=== PATIENT | male | born 1950 | race Caucasian/White ===

== ENCOUNTER → 2016-07-24 | Outpatient (CLI) | payer MEDICARE ==
[~2016-07-24] MED LIST: ADVAIR 250-501 EAC1 INH; ADVAIR 250-501 EACH IH; ADVAIR 2501 DISK W/D PO; ADVIL200 M1 PO; AGGRENOX PO; ALBUTEROL 0.5ML INH; ALBUTEROL MININEB NEB; ALBUTEROL0.83 MG/ML IH; ASPIRIN81 M1 PO; CHANTIX PO; CHANTIX1 MG PO; CIPRO PO; CLONIDINE PO; CLOPIDOGREL75 MG PO; COMBIVENT RESPIM4 GM INH; COMBIVENT U/D3 M2 INH; DUONEB 2.5-0.5 M3 ML NEB; FLOMAX0.4 MG PO; GLUCOPHAGE500 MG PO; IRON PILL; JANUVIA PO; JANUVIA50 MG PO; LASIX PO; LISINOPRIL10 MG PO; LOPID600 MG PO; LORTAB 10/500 T1 TAB PO; LOTREL PO; METFORMIN PO; OXYGEN; PLAVIX PO; PREDNISONE PO; SIMVASTATIN40 MG PO; TYLENOL PM EX-S1 TA4 PO; TYLOX 5/500 CAP1 CAP PO; ULTRAM PO; VICTOZA 3-0.6 MG/0.1 SQ; VICTOZA0.6 MG/0.1 SUBQ; ZESTORETIC; [UNRECOGNIZED DRUG - OTHER]
--- NOTE | ~2016-07-24 | EKG ---
PATIENT: WENDI CORTÉS UNIT #: [id number] Ventricular Rate: 86 BPM Atrial Rate: 86 BPM P-R Interval: 142 ms QRS Duration: 116 ms Q-T Interval: 380 ms QTC Calculation(Bezet): 454 ms P [place]unt[place]: -1 degrees Calculated R [place]: 65 degrees Calculated T [place]: 57 degrees Diagnosis Line: Normal sinus rhythm Diagnosis Line: Normal ECG Diagnosis Line: When compared with ECG of 09-DEC-2014 11:29, Diagnosis Line: No significant change was found Diagnosis Line: Confirmed by ALBA STEVENSON MD ([id number]) on 07/27/2016 Diagnosis Line: 3:58:59 PM INTERPRETING MD: ELVA KEITH
[2016-07-24 15:26] LABS: HEMATOCRIT 44.1 % (38.0-50.0); HEMOGLOBIN 14.5 gm/dL (13.0-16.0); MEAN CELL VOLUME 85.4 FL (83-96); MEAN CORPUSCULAR HEMOGLOBIN 28.1 PG (28-34); MEAN CORPUSCULAR HGB CONC 32.9 g/dL (30-36); RED BLOOD COUNT 5.16 X10e (3.90-5.60); RED CELL DISTRIBUTION WIDTH 15.1 % (11.0-15.5); WHITE BLOOD COUNT 8.1 X10e3 (4.0-10.5)
[2016-07-24 15:52] LABS: BUN/CREATININE RATIO 16.66; CALCIUM SERUM 9.6 mg/dL (8.4-10.2); CREATININE SERUM 0.9 mg/dL (0.6-1.4); GLOM FILT RATE Estimated 89.9 mL/min (>60)
== END | disposition home or self-care (01) ==
LOC: CAMB 13:47
PROVIDERS: Surgery
DX: Z01.818 Encounter for other preprocedural examination (principal); C44.40 Unspecified malignant neoplasm of skin of scalp and neck
CPT/HCPCS: 36415; 80048; 85027; 93005

== ENCOUNTER → 2016-08-01 | Day surgery (SDC) | payer MEDICARE ==
--- NOTE | ~2016-08-01 | OR ---
Unit #: [id number] #: [id number] Patient: WENDI CORTÉS [id number] [address] [place], [place] [address] [id number] O MR#: [id number] NAME: WENDI CORTÉS ROOM: Date of Procedure: 08/01/2016 Admission Date: 08/01/2016 Surgeon: Tyree Beaulieu Jr., M.D. : 1950 Attending Physician: Tyree Beaulieu Jr., M.D. Primary Care Physician: Hannah Tanner M.D. OPERATIVE REPORT JOB NOTE: CC: DR. 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 He actually has 2 lesion [id number] and was felt he needed these excised. He also has palpable lymph node in the area of the mid jugular nodes. It was felt he needed primary excision of his skin cancer as well as probably a lymph node biopsy. He was brought in this time for this procedure under general anesthesia. The patient understands the procedure including the risks, including that of nerve injury, bleeding, infection, poor healing, and recurrence of his cancer and consents. PREOPERATIVE DIAGNOSIS Two skin cancers of the left neck with possible positive nodes. POSTOPERATIVE DIAGNOSIS Two skin cancers of the left neck with possible positive nodes, noting several enlarged jugular nodes. ANESTHESIA General with 0.5% Marcaine with epinephrine locally. PROCEDURE PERFORMED Primary excision of 2 skin cancer of the left neck with left jugular node dissection. DESCRIPTION OF PROCEDURE The patient was positioned in supine position with his head turned to the right, and prepped and draped in routine fashion after he was anesthetized and intubated. He was locally anesthetized with 0.5% Marcaine with epinephrine locally. An elliptical incision was made around this 2 skin cancers and the margins marked, superior pretty margin was one stitch, medial margin 2 stitches. Specimen sent for frozen section on the margins and these were clear, but did show some dysplasia. After hemostasis achieved with Bovie cautery, the incision was carried around the sternocleidomastoid muscle down to the internal jugular vein and there were 2 to 3 enlarged lymph nodes in a group that were dissected free of the jugular vein. Multiple small vessels leading into them were hemoclipped and divided and after the nodes were removed, they were sent to pathology. Hemostasis was then achieved in the whole wound with the stainless-steel skin clips where appropriate or the Bovie cautery. After Unit #: [id number] #: [id number] Patient: WENDI CORTÉS irrigating the wound and noting total hemostasis, the deeper subcutaneous tissue was approximated with interrupted 3-0 Vicryl sutures. Skin edges approximated with stainless-steel skin clips and skin stapling device. Sterile dressings were applied externally. Estimated blood loss less than 50 mL. The patient received less than 1000 mL crystalloid solution during the procedure. Sponges and instruments counts were correct x3. No drains used. No complications. The patient was taken to the recovery room with stable vital signs in satisfactory condition. Dictated by... Tyree Beaulieu Jr., M.[place]oma. TRE/mela TD: 08/02/2016 00:53 JOB #: [id number] OPERATIVE REPORT Page 1 of 1 X Tyree Beaulieu MD X PROCEDURE OPERATIVE NOTE
== END | disposition home or self-care (01) ==
LOC: CSUR 06:23
DX: D04.4 Carcinoma in situ of skin of scalp and neck (principal); D22.4 Melanocytic nevi of scalp and neck; J44.9 Chronic obstructive pulmonary disease, unspecified; K42.9 Umbilical hernia without obstruction or gangrene; K21.9 Gastro-esophageal reflux disease without esophagitis; E11.9 Type 2 diabetes mellitus without complications; E78.5 Hyperlipidemia, unspecified; I10 Essential (primary) hypertension; M19.012 Primary osteoarthritis, left shoulder; F17.210 Nicotine dependence, cigarettes, uncomplicated; Z87.01 Personal history of pneumonia (recurrent); Z85.828 Personal history of other malignant neoplasm of skin; Z79.899 Other long term (current) drug therapy; Z87.442 Personal history of urinary calculi; Z86.73 Personal history of transient ischemic attack (TIA), and cerebral infarction without residual deficits; Z79.02 Long term (current) use of antithrombotics/antiplatelets; Z79.51 Long term (current) use of inhaled steroids; Z79.84 Long term (current) use of oral hypoglycemic drugs
CPT/HCPCS: 82947; 88305; 88307; 88331; J2250; J2370; J3010

== ENCOUNTER → 2016-09-30 | Outpatient (CLI) | payer MEDICARE ==
--- NOTE | ~2016-09-30 | CR229 ---
[facility] A Service of [facility] & [facility] RADIOLOGY TEXT RESULTS PATIENT: WENDI CORTÉS LOCATION: [facility] : [birth year] UNIT #: [id number] AGE: [address]: Hannah Chen MD SEX: M ORDER DR: [id number] [facility] [address] [place], [place] [address] [id number] O MR#: [id number] Acc #: [id number] NAME: WENDI CORTÉS : 1950 SEX: M STUDY DATE/TIME: 09/30/2016 11:41 UNIT: [facility] ROOM: STUDY DESCRIPTION: CR Shoulder Min 2 View Lt Attending Physician: Hannah Chen M.D. Referring Physician: Hannah Chen M.D. Ordering Physician: Hannah Chen M.D. Primary Care Physician: Hannah Chen M.D. MEDICAL IMAGING REPORT This report is preliminary unless electronic signature is present EXAM Left shoulder 3 views, 09/30/2016 HISTORY Left shoulder pain and decreased range of motion for 2 months. No known injury. FINDINGS AP view with internal and external rotation of the shoulder girdle shows satisfactory relationship of the humeral head and glenoid fossa. The joint space is normal. There is no identifiable fracture or dislocation or bony destructive process about the shoulder girdle anatomy. The acromioclavicular joint is normal. There is no radiopaque foreign body in the region. IMPRESSION Normal shoulder. Dictated by... Bobby Padgett M.D. THIS IS AN ELECTRONICALLY VERIFIED REPORT Bobby Padgett M.D. at 10/01/2016 2:17 PM JENNY/zoya TD: 09/30/2016 21:09 JOB #: [id number] MEDICAL IMAGING REPORT Page 1 of 1 COPY
== END | disposition home or self-care (01) ==
LOC: CRAD 11:25
DX: M25.512 Pain in left shoulder (principal)
CPT/HCPCS: 73030

== ENCOUNTER 2016-10-08 09:49 | Emergency (ER) | payer MEDICARE ==
--- NOTE | ~2016-10-08 | EKG ---
PATIENT: WENDI CORTÉS UNIT #: [id number] Ventricular Rate: 100 BPM Atrial Rate: 100 BPM P-R Interval: 142 ms QRS Duration: 104 ms Q-T Interval: 330 ms QTC Calculation(Bezet): 425 ms P Willis: 62 degrees Calculated R Willis: 80 degrees Calculated T Willis: 56 degrees Diagnosis Line: Normal sinus rhythm Diagnosis Line: Incomplete right bundle branch block Diagnosis Line: Borderline ECG Diagnosis Line: When compared with ECG of 24-JUL-2016 14:11, Diagnosis Line: No significant change was found Diagnosis Line: Confirmed by TAYLER GODINEZ MD ([id number]) on Diagnosis Line: 10/10/2016 7:27:41 AM INTERPRETING MD: HERBERT KEITH
--- NOTE | ~2016-10-08 | CT4 ---
[facility] A Service of [facility] & [facility] RADIOLOGY TEXT RESULTS PATIENT: WENDI CORTÉS LOCATION: [facility] : 54 UNIT #: [id number] AGE: [address]: Luz Vega MD SEX: M ORDER DR: [id number] [facility] [address] [place], [place] [address] [id number] E MR#: [id number] Acc #: [id number] NAME: WENDI CORTÉS : 1950 SEX: M STUDY DATE/TIME: 10/08/2016 UNIT: [facility] ROOM: STUDY DESCRIPTION: CT Abd and Pelv Wo Cont Attending Physician: Luz Vega M.D. Ordering Physician: Luz Vega M.D. Primary Care Physician: Hannah Chen M.D. MEDICAL IMAGING REPORT This report is preliminary unless electronic signature is present EXAM CT abdomen and pelvis without contrast 10/08/2016 1108 hours. HISTORY 66-year-old man with headache, abdominal aching, vomiting for 3 days. Lower abdominal pain for 3 days. History of diabetes, hypertension, and kidney stones. COMPARISON CT abdomen 01/06/2007 TECHNIQUE Helical noncontrasted images were obtained from the lung bases through the pubic symphysis without oral or intravenous contrast. Sagittal and coronal reconstructions were performed. Total exam DLP 664 mGy-cm. This CT exam was performed with one or more of the following radiation dose reduction techniques: automatic exposure control, adjustment of mA and/or kV according to patient size, and iterative reconstruction. FINDINGS Images through the lung bases demonstrate no acute pulmonary density. Emphysematous changes are present. There are no effusions. The distal esophagus is normal. Images through the abdomen without contrast demonstrate a normal appearance to the liver, spleen. The pancreas contains a few calcifications, but there is no evidence of acute inflammation or peripancreatic inflammation. The gallbladder is moderately well distended. There is no gallstone or gallbladder wall thickening. The adrenal glands are normal. The right kidney demonstrates a small nonobstructing stones in the lower pole measuring approximately 3 mm each. There is no pelvocaliectasis or ureterectasis. No right ureteral calculus. The left kidney demonstrates no intrarenal stones or mass. [facility] A Service of [facility] RADIOLOGY TEXT RESULTS PATIENT: WENDI CORTÉS LOCATION: [facility] : 54 UNIT #: [id number] AGE: [address]: Luz Vega MD SEX: M ORDER DR: There is no pelvocaliectasis, ureterectasis, or left ureteral stone. The bladder is distended without bladder wall thickening. The stomach is contracted and unopacified, but appears normal. There is no small bowel distension or small bowel wall thickening. The terminal ileum and appendix are normal. There is moderate stool in the colon with colonic diverticula at the distal descending colon. There is no colonic wall thickening or inflammation. There is a fat density periumbilical hernia with hernia defect measuring 1.2 cm and herniated fat measuring up to 3.5 cm transversely. This has increased slightly since 01/06/2007. Bone window images demonstrate fusion from L4-S1 with disc inserts at L4-5 and L5-S1. The alignment is anatomic. No fracture seen. IMPRESSION 1. There are small nonobstructing stones in the lower pole right kidney. No intrarenal stones are seen on the left. There is no ureterectasis, ureteral calculus. The bladder is distended, but no bladder wall thickening is seen. 2. Normal appendix. 3. The gallbladder and pancreas appear normal. 4. Uncomplicated diverticula of the distal descending colon. There is no colonic distension or wall thickening. 5. Distended bladder without evidence of wall thickening or bladder stone. 6. Postop changes of fusion L4-S1. 7. Fat density umbilical hernia is slightly larger than on 01/06/2007. There is no bowel involvement. Dictated by... Dorita Loya M.D. THIS IS AN ELECTRONICALLY VERIFIED REPORT Dorita Loya M.D. at 10/08/2016 9:02 PM Toby TD: 10/08/2016 16:41 JOB #: [id number] MEDICAL IMAGING REPORT Page 1 of 1 COPY
[2016-10-08 10:41] LABS: URINE SOURCE CLEAN CATCH
[2016-10-08 10:52] LABS: BASOPHIL# 0.1 X10e3 (0-0.3); BASOPHIL% 0.3 % (0-2.5); EOSINOPHIL% 0.1 % (0.0-7.0); HEMATOCRIT 45.3 % (38.0-50.0); HEMOGLOBIN 14.9 gm/dL (13.0-16.0); LYMPHOCYTE# 1.1 X10e3 (1.0-3.5); LYMPHOCYTE% 6.5 % (17.0-45.0); MEAN CELL VOLUME 85.1 FL (83-96); MEAN CORPUSCULAR HEMOGLOBIN 28.1 PG (28-34); MEAN PLATELET VOLUME 8.4 FL (6.5-11.5); MONOCYTE# 1.2 X10e3 (0-1.0); MONOCYTE% 7.2 % (3.0-12.0); NEUTROPHIL% 85.9 % (40-75); PLATELET COUNT 191 X10e3 (140-420); RED BLOOD COUNT 5.32 X10e (3.90-5.60); RED CELL DISTRIBUTION WIDTH 14.4 % (11.0-15.5); WHITE BLOOD COUNT 17.4 X10e3 (4.0-10.5)
[2016-10-08 11:00] LABS: POC - CKMB 1.6 ng/mL (0.0-7.9); POC - TROPONIN <0.05 ng/mL (<=0.05)
[2016-10-08 11:04] LABS: PARTIAL THROMBOPLASTIN TIME 28.2 SECONDS (23.5-31.3); PROTHROMBIN TIME (PATIENT) 10.8 SECONDS (10.0-11.7)
[2016-10-08 11:08] LABS: URINE APPEARANCE CLEAR; URINE BILIRUBIN NEG (NEG); URINE BLOOD NEG (NEG); URINE COLOR YELLOW; URINE GLUCOSE 100 MG/DL (NEG); URINE KETONE TRACE (NEG); URINE LEUKOCYTE ESTERASE NEG (NEG); URINE NITRATE NEG (NEG); URINE PH 6.5 (5-8); URINE PROTEIN NEG (NEG); URINE SPECIFIC GRAVITY 1.021 (1.003-1.035)
[2016-10-08 11:09] LABS: ALBUMIN SERUM 4.2 g/dL (3.5-5.0); ALKALINE PHOSPHATASE 75 U/L (32-92); ALT (SGPT) 14 U/L (10-40); AMYLASE 14 U/L (0-46); AST (SGOT) 14 U/L (10-42); BILIRUBIN, DIRECT 0.1 mg/dL (0.0-0.2); BILIRUBIN,INDIRECT 1.1 mg/dL (0.0-0.9); BILIRUBIN,TOTAL 1.2 mg/dL (0.2-2.0); BLOOD UREA NITROGEN 20 mg/dL (9-23); BUN/CREATININE RATIO 22.22; CALCIUM SERUM 9.5 mg/dL (8.4-10.2); CARBON DIOXIDE 24 mmol/L (22-31); CHLORIDE 102 mmol/L (100-111); CREATININE SERUM 0.9 mg/dL (0.6-1.4); GLOM FILT RATE Estimated 89.9 mL/min (>60); GLUCOSE FASTING 132 mg/dL (70-110); LIPASE 16 U/L (22-51); MAGNESIUM 1.8 mg/dL (1.6-3.0); POTASSIUM 4.2 mmol/L (3.5-5.1); SODIUM 133 mmol/L (135-145)
[2016-10-08 11:12] LABS: ALCOHOL BLOOD <5 mg/dL (0)
[2016-10-08 11:24] LABS: CULTURE INDICATED? NO
[2016-10-08 11:33] LABS: DIFF IND YES
[2016-10-08 11:42] LABS: PLATELET ESTIMATE NORMAL (NORMAL); RBC NORMAL YES
[2016-10-08 12:20] LABS: POC - CKMB 1.3 ng/mL (0.0-7.9); POC - TROPONIN <0.05 ng/mL (<=0.05)
== END 2016-10-08 13:28 | disposition home or self-care (01) ==
LOC: CED 09:49
PROVIDERS: Student in an Organized Health Care Education/Training Program
DX: R11.2 Nausea with vomiting, unspecified (principal); E11.9 Type 2 diabetes mellitus without complications; E78.5 Hyperlipidemia, unspecified; J44.9 Chronic obstructive pulmonary disease, unspecified; Z86.73 Personal history of transient ischemic attack (TIA), and cerebral infarction without residual deficits; F17.210 Nicotine dependence, cigarettes, uncomplicated
CPT/HCPCS: 36415; 74176; 80048; 80076; 81003; 82150; 82553; 83690; 83735; 83880; 84484; 85025; 85610; 85730; 93005; 96361; 96374; 96375; 99284; C9113; G0480; J2270; J2405